=== PATIENT | male | born 1950 | race African-American/Black ===

== ENCOUNTER 2018-09-19 09:27 | Emergency (ER) | payer OTHER ==
[~2018-09-19] VITALS: Ht 160 cm; Wt 82.0 kg
[2018-09-19 10:22] VITALS: BP 145/81
== END 2018-09-19 12:45 | disposition left against medical advice (07) ==
LOC: ER 12:02
DX: R10.9 Unspecified abdominal pain (principal); Z53.21 Procedure and treatment not carried out due to patient leaving prior to being seen by health care provider